=== PATIENT | female | born 1995 | race Caucasian/White ===

== ENCOUNTER 2016-10-16 19:20 | Emergency (ER) | payer OTHER ==
--- NOTE | ~2016-10-16 | CR181 ---
[facility] A Service of [facility] RADIOLOGY TEXT RESULTS PATIENT: LUÍS HOOKER LOCATION: CFTX : [birth year] UNIT #: [id number] AGE: [address]: HERB OAKES APRN SEX: F ORDER DR: [id number] [facility] [address] [place], [place] [address] [id number] E MR#: [id number]: [id number] NAME: LUÍS HOOKER. : 1995 SEX: F STUDY DATE/TIME: 10/16/2016 20:56 UNIT: [facility] ROOM: STUDY DESCRIPTION: CR Lumbar Spine 2 or 3 Views Attending Physician: Herb Oakes Aprn Ordering Physician: Herb Oakes Aprn Primary Care Physician: Primary Care Physician No MEDICAL IMAGING REPORT This report is preliminary unless electronic signature is present EXAM Lumbar spine radiograph, 10/16/2016 INDICATION Low back pain. No known injury. FINDINGS 3 views of the lumbar spine compared to 06/24/2009. Vertebral body height is normal. There is mild levoscoliosis in the apex at L3. There is no acute fracture or subluxation. There is mild narrowing L5-S1 disc. Sacroiliac joints are normal. IMPRESSION Minimal levoscoliosis of the lumbar spine, however no acute findings. Dictated by... Jake Iglesias M.D. THIS IS AN ELECTRONICALLY VERIFIED REPORT Jake Iglesias M.D. at 10/17/2016 2:31 PM GLORIA/campbell TD: 10/17/2016 01:22 JOB #: [id number] MEDICAL IMAGING REPORT Page 1 of 1 COPY
[~2016-10-16 19:20] MED LIST: ANTI-ITCH28 GM TOP; BACTRIM DS TABL1 TA1 DOB; BIRTH CONTROL PILL PO; FLEXERIL10 MG PO; IBUPROFEN PO; IBUPROFEN800 MG PO; IMITREX PO; IMITREX6 MG/0.5 M; K-DUR20 ME1 PO; KEFLEX PO; LORTAB 10-5001 EACH PO; MOTRIN600 MG PO; NAPROSYN500 MG PO; NO MEDICATIONS; OMEPRAZOLE20 M2 PO; ORUDIS75 M1 PO; PHENERGAN25 MG PO; PRILOSEC40 MG PO; PROTONIX PO; TOPAMAX50 MG DOB; TYLENOL #3 PO; VICOPROFEN 200-1 TAB PO; VOLTAREN50 MG PO; VOLTAREN75 MG PO; ZOFRAN ODT4 MG PO
[2016-10-16 20:10] LABS: URINE SOURCE CLEAN CATCH
[2016-10-16 20:17] LABS: URINE APPEARANCE CLOUDY; URINE BILIRUBIN NEG (NEG); URINE BLOOD NEG (NEG); URINE COLOR YELLOW; URINE GLUCOSE NEG (NEG); URINE KETONE NEG (NEG); URINE LEUKOCYTE ESTERASE 3+ (NEG); URINE NITRATE NEG (NEG); URINE PROTEIN NEG (NEG); URINE SPECIFIC GRAVITY 1.026 (1.003-1.035); URINE UROBILINOGEN 0.2 MG/DL (NEG)
[2016-10-16 20:22] LABS: CULTURE INDICATED? YES; URINE BACTERIA AUWI 3+ (NEGATIVE); URINE SQUAMOUS EPITHELIAL CELL MOD /[HPF]; UWBCS1 AUWI 100-200 (0-5)
[2016-10-16 20:38] LABS: URINE MUCUS PRESENT
== END 2016-10-16 21:50 | disposition home or self-care (01) ==
LOC: CFTX 19:20
PROVIDERS: Nurse Practitioner Family
DX: N39.0 Urinary tract infection, site not specified (principal); G89.29 Other chronic pain; G43.909 Migraine, unspecified, not intractable, without status migrainosus; E87.6 Hypokalemia; Z88.2 Allergy status to sulfonamides; Z88.8 Allergy status to other drugs, medicaments and biological substances; Z91.011 Allergy to milk products
CPT/HCPCS: 72100; 81003; 84703; 87086; 99283